=== PATIENT | female | born 1925 | race Caucasian/White ===

== ENCOUNTER → 2016-12-11 | Outpatient (CLI) | payer MEDICARE ==
[~2016-12-11] MED LIST: ALEN40TA; AMLO2.5T PO; AMLO5TAB2 PO; ASPI325T32 PO; CA C1TAB53 PO; CARB15DR74 OU; CELE200C PO; CLCX200C PO; CYCL1DRO OU; ENOX40DI8 SC; GABA-486 PO; LEVO100T PO; LEVO88TA26; LOSA50TA36 PO; LVT.1T PO; MTP50T; OXYC-471 PO; TRM50T PO; VITAFUSION PC
--- NOTE | 2016-12-11 16:34 | Diagnostic Imaging Report ---
INDICATION: Bilateral foot pain. FINDINGS: AP, oblique, and lateral views of both feet are obtained. There is mild narrowing of the first metatarsophalangeal joints, bilaterally with mild marginal spurring and associated subchondral cyst formation. In addition, there may be juxta-articular erosion along the distal aspect of the left first metatarsal bone. There is no evidence of an acute fracture. Degenerative spurring is noted about the midfoot, bilaterally. IMPRESSION: 1. First metatarsophalangeal arthritis, bilaterally. Given the juxta-articular erosion on the left, gouty arthritis is not excluded. 2. There is also mild midfoot degenerative spurring. 3. No acute abnormality is identified. Dictated by: Dictated on workstation # [id number]
== END ==
LOC: RAD 15:22
PROVIDERS: ATTEND Internal Medicine
DX: M79.671 Pain in right foot (principal); M79.672 Pain in left foot

== ENCOUNTER → 2017-01-24 | Outpatient (CLI) | payer MEDICARE ==
--- NOTE | 2017-01-24 11:24 | Diagnostic Imaging Report ---
INDICATION: Right shoulder pain. 3 views of the right shoulder show degenerative changes of the acromioclavicular joint. There is no acute fracture or dislocation. IMPRESSION: Minimal degenerative change. No acute abnormalities seen. There is no fracture or dislocation. Dictated by: Dictated on workstation # [id number]
== END ==
LOC: RAD 10:51
PROVIDERS: ATTEND Nurse Practitioner
DX: M25.511 Pain in right shoulder (principal); W19.XXXA Unspecified fall, initial encounter; Y92.019 Unspecified place in single-family (private) house as the place of occurrence of the external cause
CPT/HCPCS: 73030

== ENCOUNTER → 2017-02-13 | Outpatient (CLI) | payer MEDICARE ==
--- NOTE | 2017-02-13 19:40 | Diagnostic Imaging Report ---
INDICATION: Bilateral breast digital diagnostic mammogram with CAD. The current study was also evaluated with a Computer Aided Detection (CAD) system. INDICATION: Followup asymmetry along the periareolar region on the right MLO view. COMPARISON: 07/17/16. FINDINGS: The breasts are composed of scattered fibroglandular densities. Inferior right MLO perihilar asymmetry is less prominent on the current exam in favor of summation artifact of parenchyma. It also does not have a correlating abnormality in the CC projection and previously ultrasound was performed with no underlying lesion. Scattered benign-appearing calcifications are seen. No suspicious mass, architectural distortion or calcification noted. IMPRESSION: No mammographic evidence of malignancy. ACR BI-RADS Category 2: Benign findings. Result letter will be mailed to the patient. Note: At least 10% of breast cancer is not imaged by mammography. Dictated on workstation # [id number]
== END ==
LOC: RAD 08:49
PROVIDERS: ATTEND Internal Medicine
DX: R92.8 Other abnormal and inconclusive findings on diagnostic imaging of breast (principal)
CPT/HCPCS: 77066